=== PATIENT | male | born 1945 | race Caucasian/White ===

== ENCOUNTER 2018-03-13 18:01 | Emergency (ER) | payer MEDICARE ==
[2018-03-13] MEDS: MORPHINE 10 MG/ML 1ML VIAL (J2270) IM (18:33)
== END 2018-03-13 19:15 | disposition home or self-care (01) ==
LOC: M ED 18:01
DX: S46.911A Strain of unspecified muscle, fascia and tendon at shoulder and upper arm level, right arm, initial encounter (principal); X50.0XXA Overexertion from strenuous movement or load, initial encounter; Y92.099 Unspecified place in other non-institutional residence as the place of occurrence of the external cause; Y93.89 Activity, other specified; Y99.9 Unspecified external cause status; M51.26 Other intervertebral disc displacement, lumbar region; Z79.899 Other long term (current) drug therapy
CPT/HCPCS: J2270

== ENCOUNTER → 2025-01-11 | Outpatient (REF) | payer MEDICARE ==
[~2025-01-11] MED LIST: CENT1TAB PO; PERC5TAB12 PO; PRED20TA PO; TIZA2CAP PO; VITATAB54 PO
== END ==
LOC: M LAB REF 12:11
PROVIDERS: ATTEND Nurse Practitioner Family
DX: R30.0 Dysuria (principal)